=== PATIENT | male | born 1945 | race Caucasian/White ===

== ENCOUNTER 2017-02-12 10:10 | Emergency (ER) | payer MEDICARE, OTHER ==
[2017-02-12] MEDS ORDERED: TYLENOL 325 MG PO STA (10:21)
[2017-02-12 10:39] LABS: Mean Cell Volume 88.8 fl (78-100); Mean Corpuscular Hemoglobin 29.3 pg (26-32); Mean Platelet Volume 9.5 fl (6-9.5); Platelet Count 279 K/mm3 (150-450); Red Blood Count 4.47 M/mm3 (4.1-5.6); Red Cell Distribution Width 14.2 % (11.5-14.0); White Blood Count 7.8 K/mm3 (4.0-10.5)
--- NOTE | 2017-02-12 10:45 | ERPHSYRPT ---
- History of Present Illness Time Seen by Provider: 02/12/17 10:15 Source: patient Patient Subjective Stated Complaint: pt states for 1 week he has had fever, cough and bodyaches. Triage Nursing Assessment: pt pink, warm, dry. lung sounds clear and equal. pt ambulated into ER without difficulty. Physician History: CC: fever Hx: 71 y/o patient of Dr Nico Heller. He has fever, aches, myalgias, chills for several days. No sore throat. No V/D. Normal urination. No rash except mild itching above ankle. Mild cough. Allergies/Adverse Reactions: No Known Drug Allergies Allergy (Verified 02/12/17 10:32) Home Medications: Amlodipine Besylate 10 mg [Norvasc 10 MG] 5 mg PO DAILY 06/01/14 [History] Losartan Potassium 25 mg PO DAILY 06/01/14 [History] Spironolactone 25 mg [Aldactone 25 MG] 25 mg PO DAILY 06/01/14 [History] Hydrocodone Bit/Acetaminophen [Hydrocodon-Acetaminophen 5-325] 1 each PO Q4- 6HPRN PRN 02/12/17 [History] Hx Tetanus, Diphtheria Vaccination/Date Given: Yes (up to date) Hx Influenza Vaccination/Date Given: No Hx Pneumococcal Vaccination/Date Given: No Immunizations Up to Date: Yes - Review of Systems Constitutional: Fever, Chills, Fatigue, Malaise, Weakness Eyes: No Symptoms Ears, Nose, & Throat: No Throat Pain Respiratory: Cough Cardiac: No Chest Pain Abdominal/Gastrointestinal: No Abdominal Pain, No Nausea, No Vomiting, No Diarrhea Genitourinary Symptoms: No Dysuria Musculoskeletal: Myalgias, No Back Pain Neurological: No Headache All Other Systems: Reviewed and Negative - Past Medical History Pertinent Past Medical History: Yes Neurological History: Migraines, Seizures, Stroke ENT History: No Pertinent History Cardiac History: Hypertension Respiratory History: No Pertinent History Endocrine Medical History: No Pertinent History Musculoskeletal History: No Pertinent History GI Medical History: No Pertinent History History: No Pertinent History Psycho-Social History: No Pertinent History Male Reproductive Disorders: No Pertinent History - Past Surgical History Past Surgical History: Yes Neuro Surgical History: Other Cardiac: No Pertinent History Respiratory: No Pertinent History Gastrointestinal: No Pertinent History Genitourinary: No Pertinent History Musculoskeletal: No Pertinent History Male Surgical History: No Pertinent History Other Surgical History: BACK (removed a disc) - Social History Smoking Status: Current every day smoker How long have you smoked: 60 Exposure to second hand smoke: No Alcohol Use: Socially Drug Use: none Patient Lives Alone: No Significant Family History: no pertinent family hx - Nursing Vital Signs Nursing Vital Signs: Initial Vital Signs Temperature 100.1 F 02/12/17 10:19 Pulse Rate 81 02/12/17 10:19 Respiratory Rate 18 02/12/17 10:19 Blood Pressure 130/59 02/12/17 10:19 O2 Sat by Pulse Oximetry 96 02/12/17 10:19 Pain Scale Pain Intensity 6 - Physical Exam General Appearance: alert Eye Exam: PERRL/EOMI ENT Exam: normal ENT inspection, pharynx normal Neck Exam: normal inspection, non-tender, supple Respiratory Exam: normal breath sounds, lungs clear Cardiovascular/Chest Exam: normal heart sounds, regular rate/rhythm Gastrointestinal/Abdominal Exam: soft, non tender, no distention Male Genitalia: normal genitalia Extremity Exam: non-tender, normal range of motion Neurologic Exam: alert, oriented x 3, cooperative, sensation nml, No motor deficits Skin Exam: warm, dry, rash (left ankle patch pruritic contact derm) SpO2 Interpretation: normal SpO2: 96 Oxygen Delivery: Room Air - Course Nursing assessment & vital signs reviewed: Yes - Radiology Exams cxr X-ray Interpretation: Interpreted by me (COPD, mild RLL infiltrate) Ordered Tests: Active Orders 24 hr Category Date Time Status IV Insertion STAT Care 02/12/17 10:37 Active CHEST 2 VIEWS (PA AND LAT) Stat Exams 02/12/17 10:21 Taken CBC W DIFF Stat Lab 02/12/17 10:30 Completed CMP Stat Lab 02/12/17 10:30 Completed Lactic Acid Stat Lab 02/12/17 10:30 Completed Manual Differential NC Stat Lab 02/12/17 10:30 Completed UA W/RFX UR CULTURE Stat Lab 02/12/17 10:21 Ordered Medication Summary Generic Name Dose Route Start Last Admin Trade Name Freq PRN Reason Stop Dose Admin Sodium Chloride 1,000 mls @ 100 mls/hr 02/12/17 11:30 02/12/17 11:23 Sodium Chloride 0.9% 1000 Ml IV 03/14/17 11:29 100 mls/hr .Q10H FREDERIC Administration Discontinued Medications Generic Name Dose Route Start Last Admin Trade Name Epifanio PRN Reason Stop Dose Admin Acetaminophen 650 mg 02/12/17 10:21 02/12/17 10:56 Tylenol 325 Mg PO 02/12/17 10:22 650 mg STAT STA Administration Acetaminophen Confirm 02/12/17 10:55 Tylenol 325 Mg Administered 02/12/17 10:56 Dose 650 mg .ROUTE .STK-MED ONE Lab/Rad Data: Laboratory Result Diagrams 02/12/17 10:30 02/12/17 10:30 Laboratory Results 02/12/17 02/12/17 02/12/17 Range/Units 10:30 10:30 10:30 WBC (4.0-10.5) K/mm3 RBC (4.1-5.6) M/mm3 Hgb (12.5-18.0) gm/dl Hct (42-50) % MCV (78-100) fl MCH (26-32) pg MCHC (32-36) g/dl RDW (11.5-14.0) % Plt Count (150-450) K/mm3 MPV (6-9.5) fl Segmented Neutrophils (36.-66.) % Lymphocytes (Manual) (24-44) % Monocytes (Manual) (0.0-12.0) % Differential Comment Toxic Granulation Platelet Estimate (NORMAL) Anisocytosis Sodium 139 (136-145) mEq/L Potassium 4.4 (3.5-5.1) mEq/L Chloride 104 (98-107) mEq/L Carbon Dioxide 25.1 (21-32) mEq/L Anion Gap 14.3 (5-15) MEQ/L BUN 20 (9-20) mg/dL Creatinine 0.95 (0.55-1.30) mg/dl Estimated GFR > 60 ML/MIN Glucose 97 (70-110) MG/DL Lactic Acid 1.1 (0.4-2.0) Calcium 8.8 (8.5-10.1) mg/dL Total Bilirubin 0.40 (0.2-1.0) mg/dL AST 72 H (15-37) U/L ALT 142 H (12-78) U/L Alkaline Phosphatase 124 H (46-116) U/L Serum Total Protein 6.8 (6.4-8.2) gm/dL Albumin 3.0 L (3.4-5.0) g/dL Influenza Type A Ag NEGATIVE (NEGATIVE) Influenza Type B Ag NEGATIVE (NEGATIVE) RSV (PCR) NEGATIVE (Negative) 02/12/17 Range/Units 10:30 WBC 7.8 (4.0-10.5) K/mm3 RBC 4.47 (4.1-5.6) M/mm3 Hgb 13.1 (12.5-18.0) gm/dl Hct 39.7 L (42-50) % MCV 88.8 (78-100) fl MCH 29.3 (26-32) pg MCHC 33.0 (32-36) g/dl RDW 14.2 H (11.5-14.0) % Plt Count 279 (150-450) K/mm3 MPV 9.5 (6-9.5) fl Segmented Neutrophils 44 (36.-66.) % Lymphocytes (Manual) 43 (24-44) % Monocytes (Manual) 13 H (0.0-12.0) % Differential Comment ABNORMAL Toxic Granulation 1+ Platelet Estimate NORMAL (NORMAL) Anisocytosis 1+ Sodium (136-145) mEq/L Potassium (3.5-5.1) mEq/L Chloride (98-107) mEq/L Carbon Dioxide (21-32) mEq/L Anion Gap (5-15) MEQ/L BUN (9-20) mg/dL Creatinine (0.55-1.30) mg/dl Estimated GFR ML/MIN Glucose (70-110) MG/DL Lactic Acid (0.4-2.0) Calcium (8.5-10.1) mg/dL Total Bilirubin (0.2-1.0) mg/dL AST (15-37) U/L ALT (12-78) U/L Alkaline Phosphatase (46-116) U/L Serum Total Protein (6.4-8.2) gm/dL Albumin (3.4-5.0) g/dL Influenza Type A Ag (NEGATIVE) Influenza Type B Ag (NEGATIVE) RSV (PCR) (Negative) - Progress Progress Note: 02/12/17 11:50 Stable here. HE has some degree of COPD. No wheezing. Rx doxycycline, alb MDI. Advised recheck liver enzyme and sparing amounts APAP. Counseled pt/family regarding: lab results, diagnosis, need for follow-up, rad results - Departure Time of Disposition: 11:50 Departure Disposition: Home Clinical Impression: RLL pneumonia, Elevated transaminase level Condition: Stable Critical Care Time: No Referrals: DAVE HELLER [Primary Care Provider] - Instructions: Pneumonia -- Adult Additional Instructions: Rx doxycycline. Rx alb MDI. Follow up with Dr Maciel/Nico Heller next week and have your liver rechecked as well. Return for vomiting, confusion, trouble breathing or concerns. Prescriptions: Albuterol Sulfate [Albuterol Sulfate Hfa] 2 puff IH Q4-6HPRN PRN #1 [email or web address] PRN Reason: cough or wheeze Doxycycline Hyclate 100 mg [Vibramycin 100 MG] 100 mg PO BID #20 tab
[2017-02-12] MEDS ORDERED: TYLENOL 325 MG ONE (10:55)
[2017-02-12 10:59] LABS: ALKALINE PHOSPHATASE 124 U/L (46-116); ANION GAP 14.3 MEQ/L (5-15); BLOOD UREA NITROGEN 20 mg/dL (9-20); CHLORIDE 104 mEq/L (98-107); Carbon Dioxide 25.1 mEq/L (21-32); Glucose 97 MG/DL (70-110); Potassium 4.4 mEq/L (3.5-5.1); SGOT/AST 72 U/L (15-37); SGPT/ALT 142 U/L (12-78); SODIUM 139 mEq/L (136-145); Total Protein 6.8 gm/dL (6.4-8.2)
[2017-02-12] MEDS ORDERED: Sodium Chloride 0.9% 1000 ML 1,000 ML IV SCH (11:30)
[2017-02-12 11:39] LABS: ANISOCYTOSIS 1+; Platelet Estimate NORMAL (NORMAL); Total Cells Counted 100; Toxic Granulation 1+
[2017-02-12 12:19] VITALS: BP 117/63; PULSE 64; O2SAT 97
[2017-02-12 12:20] LABS: ADD URINE CULTURE? YES (NO); Bacteria FEW /HPF (NEGATIVE); Bilirubin SMALL (NEGATIVE); Blood 250 Ery/ul (0-5); COMPLETE URINE MICROSCOPIC? YES; Collection Type VOID; Glucose NEGATIVE (NEGATIVE); Leukocyte Esterase TRACE (NEGATIVE)
--- NOTE | 2017-02-12 19:14 | XRAY ---
Indication: Fever. Comparison: December 23, 2011. PA/lateral chest again hyperinflated with now subtle right lower lobe infiltrate versus atelectasis. Remaining heart and lungs unremarkable. Bony thorax intact.
== END 2017-02-12 12:18 | disposition home or self-care (01) ==
LOC: ED 10:10
DX: J18.9 Pneumonia, unspecified organism (principal); R74.0 Nonspecific elevation of levels of transaminase and lactic acid dehydrogenase [LDH]; R50.9 Fever, unspecified; R05 Cough; M79.1 Myalgia; Z79.899 Other long term (current) drug therapy
CPT/HCPCS: 36000; 36415; 71020; 80053; 81000; 83605; 85025; 87086; 87631; 96360; 99284; A9270-GY

== ENCOUNTER 2019-01-15 18:35 | Emergency (ER) | payer MEDICARE ==
[2019-01-15] MEDS ORDERED: LOPRESSOR 5 MG/5 ML INJECTION IV ONE ×2 (18:43→18:51)
[2019-01-15] MEDS ORDERED: BABY ASPIRIN 81 MG CHEW PO ONE (18:43)
[2019-01-15] MEDS ORDERED: Sodium Chloride 0.9% 1000 ML 1,000 ML IV STA (18:43)
--- NOTE | 2019-01-15 18:43 | ERPHSYRPT ---
- History of Present Illness Time Seen by Provider: 01/15/19 18:40 Historian: patient Exam Limitations: no limitations Physician History: Patient began having sharp substernal chest pain 30 minutes after eating that started at 16:15 Timing/Duration: hour(s) (2) Activities at Onset: none Quality: sharpness Location: substernal Chest Pain Radiation: no radiation Severity of Pain-Max: moderate Severity of Pain-Current: none Modifying Factors: Improves With: nothing Associated Symptoms: No nausea, No vomiting, No palpitations, No heartburn, No abdominal pain, No shortness of breath, No cough, No hurts to breathe, No diaphoresis, No chills, No fever, No fatigue, No weakness, No swelling/lump in chest, No syncope, No rash, No headache, No dizziness, No edema, No back pain Prior Chest Pain/Cardiac Workup: no prior chest pain Nitro Today/Relief: no nitro taken today Aspirin Treatment Today: no aspirin today Allergies/Adverse Reactions: No Known Drug Allergies Allergy (Verified 01/15/19 18:37) Home Medications: Losartan Potassium 25 mg PO DAILY 06/01/14 [History] Spironolactone 25 mg [Aldactone 25 MG] 25 mg PO DAILY 06/01/14 [History] Hydrocodone Bit/Acetaminophen [Hydrocodon-Acetaminophen 5-325] 1 each PO Q4- 6HPRN PRN 02/12/17 [History] Hx Tetanus, Diphtheria Vaccination/Date Given: Yes (up to date) Hx Influenza Vaccination/Date Given: No Hx Pneumococcal Vaccination/Date Given: No - Review of Systems Constitutional: No Fever, No Chills Eyes: No Eye Pain, No Vision Changes Ears, Nose, & Throat: No Mouth Swelling, No Throat Swelling, No Painful Swallowing Respiratory: No Cough, No Dyspnea Cardiac: Chest Pain, No Palpitations, No Syncope Abdominal/Gastrointestinal: No Abdominal Pain, No Nausea, No Vomiting Genitourinary Symptoms: No Dysuria, No Hematuria, No Flank Pain Musculoskeletal: No Back Pain, No Neck Pain Skin: No Pruritis, No Rash Neurological: No Focal Weakness, No Paralysis, No Sensory Changes, No Speech Changes, No Tremors Psychological: No Anxiety, No Emotional Lability Endocrine: No Excessive Sweating Hematologic/Lymphatic: No Easy Bleeding, No Easy Bruising All Other Systems: Reviewed and Negative - Past Medical History Pertinent Past Medical History: Yes Neurological History: Migraines, Seizures, Stroke ENT History: No Pertinent History Cardiac History: Hypertension Respiratory History: No Pertinent History Endocrine Medical History: No Pertinent History Musculoskeletal History: No Pertinent History GI Medical History: No Pertinent History History: No Pertinent History Psycho-Social History: No Pertinent History Male Reproductive Disorders: No Pertinent History - Past Surgical History Past Surgical History: Yes Neuro Surgical History: Other Cardiac: No Pertinent History Respiratory: No Pertinent History Gastrointestinal: No Pertinent History Genitourinary: No Pertinent History Musculoskeletal: No Pertinent History Male Surgical History: No Pertinent History Other Surgical History: BACK (removed a disc) - Social History Smoking Status: Current every day smoker How long have you smoked: 60 Exposure to second hand smoke: No Alcohol Use: Socially Drug Use: none Patient Lives Alone: No Significant Family History: no pertinent family hx - Nursing Vital Signs Nursing Vital Signs: Initial Vital Signs Pulse Rate 66 01/15/19 19:17 Respiratory Rate 16 01/15/19 19:17 Blood Pressure 145/68 01/15/19 19:17 O2 Sat by Pulse Oximetry 97 01/15/19 19:17 Pain Scale Pain Intensity 0 - Physical Exam General Appearance: no apparent distress Eye Exam: PERRL/EOMI, eyes nml inspection, No scleral icterus Ears, Nose, Throat Exam: pharynx normal, moist mucous membranes, No pharyngeal erythema Neck Exam: normal inspection, non-tender, full range of motion, No meningismus Respiratory Exam: normal breath sounds, lungs clear, airway intact, No chest tenderness, No respiratory distress, No diminished breath sounds, No accessory muscle use, No prolonged expirations, No crackles/rales, No rhonchi, No wheezing , No stridor, No pleural rub Cardiovascular Exam: regular rate/rhythm, normal heart sounds, normal peripheral pulses, capillary refill <2 sec, No murmur, No friction rub Gastrointestinal/Abdomen Exam: soft, normal bowel sounds, No tenderness, No distention, No mass, No ecchymosis, No rebound Extremity Exam: normal inspection, normal range of motion, pelvis stable, No calf tenderness, No mohan's sign, No inflammation, No pedal edema, No swelling Neurologic Exam: alert, oriented x 3, cooperative, continuity coordinator II-XII nml as tested, normal mood/affect, sensation nml, No motor deficits, No agitation Skin Exam: normal color, warm, dry, No rash, No jaundice, No decubitus, No ecchymosis SpO2 Interpretation: normal O2 Delivery: Room Air - Course Nursing assessment & vital signs reviewed: Yes EKG Interpreted by Me: RATE (90), NORMAL AXIS, NORMAL INTERVALS, NORMAL QRS, NORMAL ST-T, Other (no appreciable change in comparison to EKG from 11/04/2014) - Radiology Exams Chest X-ray Interpretation: Interpreted by me, Reviewed by me, No Pneumonia, No Pneumothorax, Nml Heart Size, No Infiltrates, Nml Mediastinum - CT Exams Abdomen/Pelvis CT Interpretation: Other (the radiologist's interpretation: Mild distention of the gallbladder. There is a small amount HEENT density in the gallbladder which maybe faint stone versus large. There is dilatation of the mid to distal common bile duct measuring 9-10 mm in diameter and there appears to be small amount of faint density in the common bile duct on axial image 32 series 2 which could be a small stone. No peripancreatic inflammatory change seen. There is thickening of the wall the gastric antrum which may be due to peptic culture disease or gastritis. Nonobstructing left renal stone. Bilateral renal cysts. No hydronephrosis. No ureteral stones. Diverticulosis. Degenerative changes in the spine and hips. Noncalcified pleural-based nodule measuring 5 x 8 mm size the lateral right lower lobe.) Ordered Tests: Active Orders 24 hr Category Date Time Status Powder Core Tester STAT Care 01/15/19 18:44 Active EKG-ER Only STAT Care 01/15/19 18:43 Active IV Insertion STAT Care 01/15/19 18:43 Active ABDOMEN AND PELVIS W CONTRAST [CT] Stat Exams 01/15/19 19:54 Taken CHEST 1 VIEW (PORTABLE) Stat Exams 01/15/19 18:44 Taken AMYLASE Stat Lab 01/15/19 19:00 Completed CBC W DIFF Stat Lab 01/15/19 19:00 Completed CK-Creatinine Phosphokinase Stat Lab 01/15/19 19:00 Completed CMP Stat Lab 01/15/19 19:00 Completed LIPASE Stat Lab 01/15/19 19:00 Completed Lactic Acid Stat Lab 01/15/19 21:10 Completed MAGNESIUM Stat Lab 01/15/19 19:00 Completed Manual Differential NC Stat Lab 01/15/19 19:00 Completed PROTIME WITH INR Stat Lab 01/15/19 19:00 Completed PTT Stat Lab 01/15/19 19:00 Completed TROPONIN Q3H Lab 01/15/19 22:51 Completed TROPONIN Q3H Lab 01/16/19 00:45 Ordered TROPONIN Q3H Lab 01/16/19 03:45 Ordered TROPONIN Q3H Lab 01/16/19 06:45 Ordered TROPONIN Stat Lab 01/15/19 19:00 Completed Medication Summary Discontinued Medications Generic Name Dose Route Start Last Admin Trade Name Leonardoq PRN Reason Stop Dose Admin Aspirin 324 mg 01/15/19 18:43 01/15/19 18:56 Baby Aspirin 81 Mg Chew PO 01/15/19 18:44 324 mg STAT ONE Administration Aspirin Confirm 01/15/19 18:51 Baby Aspirin 81 Mg Chew Administered 01/15/19 18:52 Dose 324 mg .ROUTE .STK-MED ONE Sodium Chloride 1,000 mls @ 999 mls/hr 01/15/19 18:43 01/15/19 19:58 Sodium Chloride 0.9% 1000 Ml IV 01/15/19 19:43 Infused .Q1H1M STA Infusion Sodium Chloride Confirm 01/15/19 18:51 Sodium Chloride 0.9% 1000 Ml Administered 01/15/19 18:52 Dose 1,000 mls @ ud .ROUTE .STK-MED ONE Metoprolol Tartrate 5 mg 01/15/19 18:43 01/15/19 18:57 Lopressor 5 Mg/5 Ml Injection IV 01/15/19 18:44 5 mg STAT ONE Administration Metoprolol Tartrate Confirm 01/15/19 18:51 Lopressor 5 Mg/5 Ml Injection Administered 01/15/19 18:52 Dose 5 mg IV .STK-MED ONE Lab/Rad Data: Laboratory Result Diagrams 01/15/19 19:00 01/15/19 19:00 Laboratory Results 01/15/19 01/15/19 01/15/19 Range/Units 22:51 21:10 19:00 WBC (4.0-10.5) K/mm3 RBC (4.1-5.6) M/mm3 Hgb (12.5-18.0) gm/dl Hct (42-50) % MCV (78-100) fl MCH (26-32) pg MCHC (32-36) g/dl RDW (11.5-14.0) % Plt Count (150-450) K/mm3 MPV (6-9.5) fl PT (8.83-12.87) SECONDS INR (0.8-3.0) APTT (24.1-36.1) SECONDS Sodium (137-145) mmol/L Potassium (3.5-5.1) mmol/L Chloride (98-107) mmol/L Carbon Dioxide (22-30) mmol/L Anion Gap (5-15) MEQ/L BUN (9-20) mg/dL Creatinine (0.66-1.25) mg/dL Estimated GFR ML/MIN Glucose (74-106) mg/dL Lactic Acid 0.8 (0.4-2.0) Calcium (8.4-10.2) mg/dL Magnesium (1.6-2.3) mg/dL Total Bilirubin (0.2-1.3) mg/dL AST (17-59) U/L ALT (0-50) U/L Alkaline Phosphatase (38-126) U/L Creatine Kinase (55-170) U/L Troponin I < 0.012 (0.000-0.034) ng/mL Serum Total Protein (6.3-8.2) g/dL Albumin (3.5-5.0) g/dL Amylase 233 H (30-110) U/L Lipase (23-300) U/L 01/15/19 01/15/19 01/15/19 Range/Units 19:00 19:00 19:00 WBC (4.0-10.5) K/mm3 RBC (4.1-5.6) M/mm3 Hgb (12.5-18.0) gm/dl Hct (42-50) % MCV (78-100) fl MCH (26-32) pg MCHC (32-36) g/dl RDW (11.5-14.0) % Plt Count (150-450) K/mm3 MPV (6-9.5) fl PT 11.5 (8.83-12.87) SECONDS INR 1.02 (0.8-3.0) APTT 31.1 (24.1-36.1) SECONDS Sodium 140 (137-145) mmol/L Potassium 3.7 (3.5-5.1) mmol/L Chloride 102 (98-107) mmol/L Carbon Dioxide 29 (22-30) mmol/L Anion Gap 13.5 (5-15) MEQ/L BUN 20 (9-20) mg/dL Creatinine 1.11 (0.66-1.25) mg/dL Estimated GFR > 60.0 ML/MIN Glucose 92 (74-106) mg/dL Lactic Acid (0.4-2.0) Calcium 9.6 (8.4-10.2) mg/dL Magnesium 2.0 (1.6-2.3) mg/dL Total Bilirubin 0.40 (0.2-1.3) mg/dL AST 39 (17-59) U/L ALT 25 (0-50) U/L Alkaline Phosphatase 78 (38-126) U/L Creatine Kinase 45 L (55-170) U/L Troponin I < 0.012 (0.000-0.034) ng/mL Serum Total Protein 8.3 H (6.3-8.2) g/dL Albumin 4.2 (3.5-5.0) g/dL Amylase (30-110) U/L Lipase 994 H (23-300) U/L 01/15/19 Range/Units 19:00 WBC 12.1 H (4.0-10.5) K/mm3 RBC 4.98 (4.1-5.6) M/mm3 Hgb 15.2 (12.5-18.0) gm/dl Hct 45.2 (42-50) % MCV 90.8 (78-100) fl MCH 30.5 (26-32) pg MCHC 33.6 (32-36) g/dl RDW 13.9 (11.5-14.0) % Plt Count 319 (150-450) K/mm3 MPV 10.2 H (6-9.5) fl PT (8.83-12.87) SECONDS INR (0.8-3.0) APTT (24.1-36.1) SECONDS Sodium (137-145) mmol/L Potassium (3.5-5.1) mmol/L Chloride (98-107) mmol/L Carbon Dioxide (22-30) mmol/L Anion Gap (5-15) MEQ/L BUN (9-20) mg/dL Creatinine (0.66-1.25) mg/dL Estimated GFR ML/MIN Glucose (74-106) mg/dL Lactic Acid (0.4-2.0) Calcium (8.4-10.2) mg/dL Magnesium (1.6-2.3) mg/dL Total Bilirubin (0.2-1.3) mg/dL AST (17-59) U/L ALT (0-50) U/L Alkaline Phosphatase (38-126) U/L Creatine Kinase (55-170) U/L Troponin I (0.000-0.034) ng/mL Serum Total Protein (6.3-8.2) g/dL Albumin (3.5-5.0) g/dL Amylase (30-110) U/L Lipase (23-300) U/L - Progress Progress: improved Air Movement: good Progress Note: 01/15/19 19:27 Patient is chest pain free still. Patient is sinus rhythm on the radiation monitor 01/15/19 21:40 Patient is not complaining of any abdominal or chest pain. 01/15/19 21:45 Discussed the case with Dr Heller, patient's physician. Dr Heller accepted the patient for transfer to [facility]. 01/15/19 23:48 Patient has no chest pain, abdominal pain, dyspnea, nause or vomiting 01/15/19 23:50 Discussed the results of the CT scan with Dr Heller, who accepted the patient for transfer to [facility]. Discussed with .: Олег Heller Will see patient in: hospital (observation) ([facility]) Counseled pt/family regarding: lab results, diagnosis, need for follow-up, rad results - Departure Departure Disposition: Home, Transfer ([facility]) Clinical Impression: Gallstone pancreatitis, Common bile duct dilatation, Acute chest pain, Left nephrolithiasis, Diverticulosis, Right lower lobe pulmonary nodule, Biliary sludge Gastritis Qualifiers: Gastritis type: unspecified gastritis Chronicity: acute Gastritis bleeding: without bleeding Qualified Code(s): K29.00 - Acute gastritis without bleeding Hypertension Qualifiers: Hypertension type: essential hypertension Qualified Code(s): I10 - Essential ( primary) hypertension Condition: Fair Critical Care Time: No Referrals: DAVE HELLER [Primary Care Provider] -
[2019-01-15] MEDS ORDERED: Sodium Chloride 0.9% 1000 ML 1,000 ML ONE (18:51)
[2019-01-15] MEDS ORDERED: BABY ASPIRIN 81 MG CHEW ONE (18:51)
[2019-01-15 19:17] LABS: Hematocrit 45.2 % (42-50); Hemoglobin 15.2 gm/dl (12.5-18.0); Mean Cell Volume 90.8 fl (78-100); Mean Corpuscular Hemoglobin 30.5 pg (26-32); Mean Corpuscular Hgb Concent. 33.6 g/dl (32-36); Mean Platelet Volume 10.2 fl (6-9.5); Platelet Count 319 K/mm3 (150-450); Red Blood Count 4.98 M/mm3 (4.1-5.6); Red Cell Distribution Width 13.9 % (11.5-14.0); White Blood Count 12.1 K/mm3 (4.0-10.5)
[2019-01-15 19:27] LABS: INR 1.02 (0.8-3.0); PROTIME 11.5 SECONDS (8.83-12.87)
[2019-01-15 19:30] LABS: PTT 31.1 SECONDS (24.1-36.1)
[2019-01-15 19:43] LABS: ALBUMIN 4.2 g/dL (3.5-5.0); ALKALINE PHOSPHATASE 78 U/L (38-126); ANION GAP 13.5 MEQ/L (5-15); BLOOD UREA NITROGEN 20 mg/dL (9-20); CHLORIDE 102 mmol/L (98-107); CK-Creatinine Phosphokinase 45 U/L (55-170); Calcium 9.6 mg/dL (8.4-10.2); Carbon Dioxide 29 mmol/L (22-30); Creatinine 1 1.11 mg/dL (0.66-1.25); Glucose 92 mg/dL (74-106); Potassium 3.7 mmol/L (3.5-5.1); SGOT/AST 39 U/L (17-59); SGPT/ALT 25 U/L (0-50); SODIUM 140 mmol/L (137-145); TROPONIN < 0.012 ng/mL (0.000-0.034); Total Protein 8.3 g/dL (6.3-8.2)
[2019-01-15 21:57] VITALS: BP 137/67; PULSE 67; O2SAT 98
[2019-01-16 00:29] LABS: ATYPICAL LYMPHS 3 %; Eosinophil 2 % (0.00-3.0); Lymphocytes 42 % (24-44); Monocyte 9 % (0.0-12.0); Neutrophils 44 % (36.-66.); Total Cells Counted 100
[2019-01-16 00:30] LABS: Platelet Estimate NORMAL (NORMAL)
--- NOTE | 2019-01-16 08:52 | XRAY ---
Indication: Chest pain and short of breath. Comparison: February 12, 2017. Portable chest again hyperinflated with a few incidental tiny calcified granulomas. No focal infiltrate, consolidation, or large effusion. Heart is not enlarged for AP portable technique. Bony thorax intact again with mild osteopenia and degenerative changes. Impression: Nonacute chest with chronic features.
--- NOTE | 2019-01-16 09:00 | XRAY ---
Indication: Lower chest/upper abdomen pain. Elevated amylase/lipase. Multiple contiguous axial images obtained through the abdomen and pelvis using 80 cc Isovue 370 contrast only. Comparison: None. Lung bases demonstrates scattered fibrosis/scarring and tiny right lower lobe calcified granuloma. Right lower lobe 8 mm subpleural noncalcified nodule possibly granulomatous as well. No infiltrate or effusion. Heart is not enlarged. Small hiatal hernia. Noncontrasted stomach and bowel loops remain nonobstructed. Normal appendix. There is mild diffuse scattered colonic fecal debris throughout. Also scattered colonic diverticulosis, greatest in the sigmoid colon. No free fluid/air. Gallbladder moderately distended with tiny gallstones/gravel near the neck of the gallbladder. Common bile duct is distended up to 10 mm. Both kidneys enhance and excrete with 2.4 cm left upper pole exophytic cyst and 2.3 cm right parapelvic cyst. Nonobstructing 4 mm left lower renal calculus. Remaining liver, gallbladder, pancreas, spleen, adrenal glands, kidneys, ureters, and bladder appear unremarkable. Mild aortoiliac calcifications. No AAA or pathologic retroperitoneal lymphadenopathy. Osseous structures intact with mild degenerative changes throughout the thoracolumbar spine and mild degenerative changes of both hips. Impression: 1. Distended gallbladder with tiny gallstones/gravel and common bile duct distention. Gallbladder sonogram may yield further information. 2. Small hiatal hernia, fecal stasis without obstruction, and colonic diverticulosis. 3. Bilateral renal cysts and nonobstructing left renal micro-calculus. 4. Noncalcified 8 mm right lower lobe subpleural nodule possibly granulomatous as there is evidence for old granulomatous disease elsewhere. Comparison studies would be of benefit if performed elsewhere. If not, recommend CT chest to establish baseline with follow-up per Fleischner guidelines. Comment: Preliminary interpretation was made by [facility]. No critical discrepancy. CT DI 21.01
== END 2019-01-15 23:55 | disposition short-term general hospital (02) ==
LOC: ED 18:35
DX: K83.8 Other specified diseases of biliary tract (principal); K29.00 Acute gastritis without bleeding; R07.89 Other chest pain; N20.0 Calculus of kidney; K57.90 Diverticulosis of intestine, part unspecified, without perforation or abscess without bleeding; R91.1 Solitary pulmonary nodule; I10 Essential (primary) hypertension
CPT/HCPCS: 36000; 36415; 71045; 74177; 80053; 82150; 82550; 83605; 83690; 83735; 84484; 85025; 85610; 85730; 93005; 93041; 96374; 99285; A9270-GY